=== PATIENT | female | born 1945 | race Caucasian/White ===

== ENCOUNTER 2017-06-07 07:09 | Emergency (ER) | payer MEDICARE, MEDICAID ==
[2017-06-07] MEDS ORDERED: methylPREDNISolone 125 MG* 2 ML VIAL IV ONE (07:19)
[2017-06-07 07:21] VITALS: BP 143/53
[2017-06-07 07:59] LABS: Hematocrit 44 % (35-47); Hemoglobin 14.5 g/dl (12.0-16.0); Mean Corpuscular HGB Conc 33 g/dl (31-36); Mean Corpuscular Hemoglobin 31 pg (27-31); Mean Corpuscular Volume 93 fL (80-97); Mean Platelet Volume 9 um3 (7.4-10.4); Red Blood Count 4.69 10^6/ul (4.0-5.4); Red Cell Distribution Width 14 % (10.5-15); White Blood Count 7.5 10^3/ul (3.5-10.8)
[2017-06-07] MEDS ORDERED: Albuterol/Ipratropium NEB.SOL* Albuterol 2.5 MG/Ipratropium 0.5 MG 3 ML INH SCH (08:00)
[2017-06-07 08:15] LABS: Albumin 4.1 g/dL (3.2-5.2); BUN/Creatinine Ratio 28.3 (8-20); C Reactive Protein 35.99 mg/L (< 5.00); Calcium 9.3 mg/dL (8.6-10.3); EGFR African American 127.1 (>60); EGFR Non-African American 98.8 (>60); Globulin 2.9 g/dL (2-4); Total Bilirubin 1.5 mg/dL (0.2-1.0)
--- NOTE | 2017-06-07 08:29 | RAD ---
HISTORY: Shortness of breath COMPARISONS: June 03, 2008 VIEWS: 4: Frontal dual-energy and lateral views of the chest. FINDINGS: CARDIOMEDIASTINAL SILHOUETTE: The cardiomediastinal silhouette is normal. BERNADETTE: The bernadette are normal. PLEURA: The costophrenic angles are sharp. No pleural abnormalities are noted. LUNG PARENCHYMA: There is hyperinflation with flattening of the diaphragm and expansion of the AP diameter of the chest. ABDOMEN: The upper abdomen is clear. There is no subphrenic gas. BONES AND SOFT TISSUES: No bone or soft tissue abnormalities are noted. OTHER: None. IMPRESSION: HYPERINFLATION, CONSISTENT WITH COPD. NO ACTIVE CARDIOPULMONARY DISEASE.
[2017-06-07] MEDS ORDERED: HYDROcodone/ACETAMIN 5-325 MG* 1 TAB PO ONE (08:50)
--- NOTE | 2017-06-07 09:29 | RAD ---
HISTORY: Rib pain COMPARISONS: None VIEWS: 4, Frontal view of the chest with frontal and oblique views of the left hemithorax FINDINGS: There is no displaced rib fracture or pneumothorax. The visualized lungs are clear. IMPRESSION: NO DISPLACED RIB FRACTURE OR PNEUMOTHORAX. IF THERE IS PERSISTENT CLINICAL CONCERN FOR OSSEOUS PATHOLOGY OF THE RIBS, BONE SCANNING MAY BE MORE SENSITIVE.
--- NOTE | 2017-06-08 09:18 | ED ---
Javon Kirby Angela, scribed for Cecil Tadeo MD on 06/07/17 at 0725 . Shortness of Breath - HPI Summary HPI Summary: This pt is a 71 y/o female presenting to [facility] via EMS c/o SOB since this morning. Pt reports that she has a productive cough and some nausea. She denies fever, chills, vomiting, chest pain. Pt notes a rash on her back and left sided rib pain. Her back rib pain is rated 10/10 in severity, per triage note. Pt's pain is aggravated with deep breaths. Pt is on 2L of oxygen for 24 hours every day. PMHx includes COPD. - History of Current Complaint Time Seen by Provider: 06/07/17 07:12 Hx Obtained From: Patient Onset/Duration: Lasting Hours, Still Present Timing: Constant Dyspnea At: Rest Associated Signs & Symptoms: Cough (Productive) - Allergy/Home Medications Allergies/Adverse Reactions: Allergies Allergy/AdvReac Type Severity Reaction Status Date / Time No Known Allergies Allergy Verified 06/07/17 07:25 Home Medications: Home Medications Cyclobenzaprine TAB* [Flexeril 10 MG TAB*] 10 mg PO DAILY PRN 06/07/17 [History Confirmed 06/07/17] Diclofenac 1% GEL (NF) [Voltaren 1% GEL (NF)] 1 applic TOPICAL BID PRN 06/07/17 [History Confirmed 06/07/17] Fluticasone-Salmeterol 100-50* [Advair Diskus 100-50*] 1 puff INH DAILY [History Confirmed 06/07/17] Levothyroxine TAB* [Synthroid TAB*] 75 mcg PO DAILY 06/07/17 [History Confirmed 06/07/17] Umeclidin/Vilant 62.5 MDI(NF) [ANORO 62.5/25 Ellipta DEVICE (NF)] 1 inh INH DAILY 06/07/17 [History Confirmed 06/07/17] traMADol TAB* [Ultram*] 50 mg PO Q6HR PRN 06/07/17 [History Confirmed 06/07/17] PMH/Surg Hx/FS Hx/Imm Hx Endocrine/Hematology History: Denies: Hx Diabetes Cardiovascular History: Denies: Hx Hypertension Respiratory History: Reports: Hx Chronic Obstructive Pulmonary Disease (COPD) - Family History Known Family History: Positive: Hypertension, Diabetes - Social History Alcohol Use: None Substance Use Type: Reports: None Smoking Status (MU): Unknown if Ever Smoked Review of Systems Negative: Fever, Chills Negative: Chest Pain Positive: Shortness Of Breath, Cough Positive: Nausea. Negative: Vomiting Musculoskeletal: Other - back rib pain Positive: Rash All Other Systems Reviewed And Are Negative: Yes Physical Exam - Summary Physical Exam Summary: VITAL SIGNS: Reviewed. GENERAL: Patient is an elderly female who seems to be dry. HEAD AND FACE: No signs of trauma. No ecchymosis, hematomas or skull depressions. No sinus tenderness. EYES: PERRLA, EOMI x 2, No injected conjunctiva, no nystagmus. EARS: Hearing grossly intact. Ear canals and tympanic membranes are within normal limits. MOUTH: Oropharynx within normal limits. NECK: Supple, trachea is midline, no adenopathy, no JVD, no carotid bruit, no c- spine tenderness, neck with full ROM. CHEST: Symmetric, no tenderness at palpation LUNGS: Decreased breath sounds bilaterally. Some crackles at the bases of the lungs. CVS: Regular rate and rhythm, S1 and S2 present, no murmurs or gallops appreciated. ABDOMEN: Soft, non-tender. No signs of distention. No rebound no guarding, and no masses palpated. Bowel sounds are normal. EXTREMITIES: FROM in all major joints, no edema, no cyanosis or clubbing. NEURO: Alert and oriented x 3. No acute neurological deficits. Speech is normal and follows commands. SKIN: Dry and warm. Pt has an erythematous rash plaque form on the back, which seems to be chronic. There is no blanching. Pt has the same rash on his upper extremities. Triage Information Reviewed: Yes Vital Signs On Initial Exam: Initial Vitals Pulse Ox 95 06/07/17 07:15 Vital Signs Reviewed: Yes Diagnostics - Vital Signs Vital Signs Temp Pulse Resp BP Pulse Ox 06/07/17 08:00 80 17 97 06/07/17 07:44 75 12 98 06/07/17 07:19 93 143/53 88 06/07/17 07:18 98.3 F 93 24 143/53 87 06/07/17 07:15 95 - Laboratory Lab Results: Lab Results 12/07/17 12/07/17 12/07/17 Range/Units 07:45 07:45 07:45 WBC 7.5 (3.5-10.8) 10^3/ul RBC 4.69 (4.0-5.4) 10^6/ul Hgb 14.5 (12.0-16.0) g/dl Hct 44 (35-47) % MCV 93 (80-97) fL MCH 31 (27-31) pg MCHC 33 (31-36) g/dl RDW 14 (10.5-15) % Plt Count 181 (150-450) 10^3/ul MPV 9 (7.4-10.4) um3 Neut % (Auto) 79.1 (38-83) % Lymph % (Auto) 12.6 L (25-47) % [place] % (Auto) 6.5 (1-9) % Eos % (Auto) 1.1 (0-6) % Baso % (Auto) 0.7 (0-2) % Absolute Neuts (auto) 5.9 (1.5-7.7) 10^3/ul Absolute Lymphs (auto) 0.9 L (1.0-4.8) 10^3/ul Absolute Monos (auto) 0.5 (0-0.8) 10^3/ul Absolute Eos (auto) 0.1 (0-0.6) 10^3/ul Absolute Basos (auto) 0.1 (0-0.2) 10^3/ul Absolute Nucleated RBC 0 10^3/ul Nucleated RBC % 0.1 Sodium 137 (133-145) mmol/L Potassium 4.0 (3.5-5.0) mmol/L Chloride 103 (101-111) mmol/L Carbon Dioxide 28 (22-32) mmol/L Anion Gap 6 (2-11) mmol/L BUN 17 (6-24) mg/dL Creatinine 0.60 (0.51-0.95) mg/dL Est GFR ( Amer) 127.1 (>60) Est GFR (Non-Af Amer) 98.8 (>60) BUN/Creatinine Ratio 28.3 H (8-20) Glucose 124 H (70-100) mg/dL Lactic Acid (0.5-2.0) mmol/L Calcium 9.3 (8.6-10.3) mg/dL Total Bilirubin 1.50 H (0.2-1.0) mg/dL AST 12 L (13-39) U/L ALT 10 (7-52) U/L Alkaline Phosphatase 62 (34-104) U/L Total Creatine Kinase 35 (10-223) U/L Troponin I 0.00 (<0.04) ng/mL C-Reactive Protein 35.99 H (< 5.00) mg/L B-Natriuretic Peptide 30 ( - 100) pg/mL Total Protein 7.0 (6.4-8.9) g/dL Albumin 4.1 (3.2-5.2) g/dL Globulin 2.9 (2-4) g/dL Albumin/Globulin Ratio 1.4 (1-3) Influenza A (Rapid) (Negative) Influenza B (Rapid) (Negative) 06/07/17 06/07/17 Range/Units 07:45 07:58 WBC (3.5-10.8) 10^3/ul RBC (4.0-5.4) 10^6/ul Hgb (12.0-16.0) g/dl Hct (35-47) % MCV (80-97) fL MCH (27-31) pg MCHC (31-36) g/dl RDW (10.5-15) % Plt Count (150-450) 10^3/ul MPV (7.4-10.4) um3 Neut % (Auto) (38-83) % Lymph % (Auto) (25-47) % [place] % (Auto) (1-9) % Eos % (Auto) (0-6) % Baso % (Auto) (0-2) % Absolute Neuts (auto) (1.5-7.7) 10^3/ul Absolute Lymphs (auto) (1.0-4.8) 10^3/ul Absolute Monos (auto) (0-0.8) 10^3/ul Absolute Eos (auto) (0-0.6) 10^3/ul Absolute Basos (auto) (0-0.2) 10^3/ul Absolute Nucleated RBC 10^3/ul Nucleated RBC % Sodium (133-145) mmol/L Potassium (3.5-5.0) mmol/L Chloride (101-111) mmol/L Carbon Dioxide (22-32) mmol/L Anion Gap (2-11) mmol/L BUN (6-24) mg/dL Creatinine (0.51-0.95) mg/dL Est GFR ( Amer) (>60) Est GFR (Non-Af Amer) (>60) BUN/Creatinine Ratio (8-20) Glucose (70-100) mg/dL Lactic Acid 1.0 (0.5-2.0) mmol/L Calcium (8.6-10.3) mg/dL Total Bilirubin (0.2-1.0) mg/dL AST (13-39) U/L ALT (7-52) U/L Alkaline Phosphatase (34-104) U/L Total Creatine Kinase (10-223) U/L Troponin I (<0.04) ng/mL C-Reactive Protein (< 5.00) mg/L B-Natriuretic Peptide ( - 100) pg/mL Total Protein (6.4-8.9) g/dL Albumin (3.2-5.2) g/dL Globulin (2-4) g/dL Albumin/Globulin Ratio (1-3) Influenza A (Rapid) Negative (Negative) Influenza B (Rapid) Negative (Negative) Result Diagrams: 06/07/17 07:45 06/07/17 07:45 Lab Statement: Any lab studies that have been ordered have been reviewed, and results considered in the medical decision making process. - Radiology Chest XR Xray Interpretation: Positive (See Comments) - IMPRESSION: Hyperinflatoin, consistent with COPD. No active cardiopulmonary disease. ED physician has reviewed this radiology report and agrees. Radiology Interpretation Completed By: Radiologist left ribs XR Xray Interpretation: No Acute Changes - IMPRESSION: No displaced rib fracture or pneumothorax. If there is persistent clinical concern for osseou pathology of the ribs, bone scanning may be more sensitive. ED physician has reviewed this radiology report and agrees. Radiology Interpretation Completed By: Radiologist - EKG 0735 Cardiac Rate: NL EKG Rhythm: Sinus Rhythm - at 79 bpm EKG Interpretation: No ST elevations Re-Evaluation - Re-Evaluation First Eval Re-Evaluation Time: 08:50 Comment: Pt is breathing better. She sitll has left sided rib cage pain. Course/Dx - Course Assessment/Plan: This pt is a 71 y/o female presenting to [facility] via EMS c/o SOB since this morning. Pt reports that she has a productive cough and some nausea. She denies fever, chills, vomiting, chest pain. Pt notes a rash on her back and left sided rib pain. Her back rib pain is rated 10/10 in severity, per triage note. Pt's pain is aggravated with deep breaths. Pt is on 2L of oxygen for 24 hours every day. PMHx includes COPD. Test results without any significant abnormalities except for glucose of 124, CRP of 35.9. Influenza A and B are negative. Chest XR shows Hyperinflatoin, consistent with COPD. No active cardiopulmonary disease. Ribs XR shows no displaced rib fracture or pneumothorax. If there is persistent clinical concern for osseous pathology of the ribs, bone scanning may be more sensitive. In the ED course, the pt was given duoneb, Solu-medrol for COPD exacerbation, and Allgood for the rib pain. After these medications, the symptoms improved. At this point the pt is no longer short of breath. Pt is ambulating to the bathroom without SOB. I believe her symptoms are secondary to COPD exacerbation. Therefore she will be discharged home with follow up from her PCP. Pt is hemodynamically stable, alert and oriented x3. - Diagnoses Differential Diagnosis/HQI/PQRI: Positive: Asthma, Bronchitis, CHF, COPD Exacerbation, Pneumonia, Pulmonary Edema Provider Diagnoses: COPD exacerbation, rib cage pain Discharge - Discharge Plan Condition: Stable Disposition: HOME Patient Education Materials: COPD (Chronic Obstructive Pulmonary Disease) (ED) Referrals: Lynne Aragon MD [Primary Care Provider] - Additional Instructions: Please follow up with your primary care provider. RETURN TO THE ED FOR ANY WORSENING OR NEW SYMPTOMS. The documentation as recorded by the Javon mccoy Angela accurately reflects the service I personally performed and the decisions made by , Cecil Tadeo MD.
== END 2017-06-07 10:10 | disposition home or self-care (01) ==
LOC: ED 07:09
DX: J44.1 Chronic obstructive pulmonary disease with (acute) exacerbation (principal); R07.81 Pleurodynia
CPT/HCPCS: 36415; 71020; 80053; 82550; 83605; 83880; 84484; 85025; 86140; 87502; 93005; 94640; 99282; A9270-GY; J2930